=== PATIENT | male | born 1990 | race Caucasian/White ===

== ENCOUNTER 2021-06-22 23:00 | Emergency (ER) | payer OTHER ==
[~2021-06-22] VITALS: Ht 180.3 cm; Wt 85.5 kg
[2021-06-22 23:45] VITALS: BP 159/92
--- NOTE | 2021-06-22 23:53 | PHYS DOC ---
Past History Past Surgical History: No Surgical History Alcohol Use: None General Adult EDM: Chief Complaint: UPPER EXTREMITY INJURY HPI: HPI: " I was playing basket ball.. and got tripped up .. Fell .. and tried to catch myself .. and mess up my forearm and wrist.. that was about 1500 hrs.. and it has not gotten better. 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 Patient presents with above hx and complaint of FOOSH injury to Lt. forearm. Pt. Rt. hand dominate. Patient has obvious swelling of left hand and wrist. Distal sensation is equal to right hand. P atient reports pain with flexion, extension, pronation and supination of left wrist. Does have pain on loading the left thumb. Patient denies other injury and fall. Is up-to-date with vaccinations. No recent travel. No specific ill contacts. No history immunosuppression. Review of Systems: Review of Systems: Constitutional: Denies fever or chills Eyes: Denies change in visual acuity HENT: Denies nasal congestion or sore throat Respiratory: Denies cough or shortness of breath Cardiovascular: Denies chest pain or edema GI: Denies abdominal pain, nausea, vomiting, bloody stools or diarrhea : Denies dysuria Musculoskeletal: Complains of left wrist and hand injury. Integument: Denies rash Neurologic: Denies headache, focal weakness or sensory changes Endocrine: Denies polyuria or polydipsia Lymphatic: Denies swollen glands Psychiatric: Denies depression or anxiety Family History: Family History: Noncontributory to presentation Current Medications: Current Meds: See nursing for home meds Allergies: Allergies: Allergies Coded Allergies Type Severity Reaction Last Updated Verified No Known Drug Allergies 06/22/21 No Physical Exam: PE: Constitutional: Well developed, well nourished, mild acute distress, non-toxic appearance. [] HENT: Normocephalic, atraumatic, bilateral external ears normal, oropharynx moist, no oral exudates, nose normal. [] Eyes: PERRLA, EOMI, conjunctiva normal, no discharge. [] Neck: Normal range of motion, no tenderness, supple, no stridor. [] Cardiovascular:Heart rate regular rhythm, no murmur [] Lungs & Thorax: Bilateral breath sounds clear to auscultation [] Abdomen: Bowel sounds normal, soft, no tenderness, no masses, no pulsatile masses. [] Skin: Warm, dry, no erythema, no rash. [] Back: No tenderness, no CVA tenderness. [] Extremities: No tenderness, no cyanosis, no clubbing, ROM intact, no edema. Except the findings and left hand and wrist as per HPI Neurologic: Alert and oriented X 3, normal motor function, normal sensory function, no focal deficits noted. [] Psychologic: Affect anxious, judgement normal, mood normal. [] Current Patient Data: Vital Signs: Vital Signs Date Time Temp Pulse Resp B/P (MAP) Pulse Ox O2 Delivery O2 Flow Rate FiO2 06/22/21 23:45 98.4 60 20 159/92 (114) 97 Room Air EKG: EKG: [] Radiology/Procedures: Radiology/Procedures: [][address] [address] IMAGING REPORT Signed PATIENT: ROYCE CARMONA ACCOUNT: [id number] : 1990 LOCATION: ER AGE: 31 SEX: M EXAM STATUS: REG ER ORD. PHYSICIAN: KAITLYN LEMOS MD REASON: FELL ON ARM PLAYING BASKETBALL PROCEDURE: WRIST 3V LEFT Study: 1. XR LT WRIST 3VIEWS 2. XR FOREARM_LEFT 2 VIEWS Indication: Fall. Injury. Comparison: None. Findings: Left wrist: Subtle acute fracture at the dorsal lip of the radius with articular surface involvement. This is best seen on the lateral view and the small fragment appears to be slightly displaced proximally. The surrounding soft tissues are edematous. Intact distal ulna and carpal bones. Normal scapholunate interval. Left forearm: Intact radius and ulna shafts. No fracture or malalignment at the elbow. Impression: Left wrist and left forearm: Subtle fracture at the dorsal lip of the radius with articular surface involvement and possibly a few millimeters of proximal retraction of the fragment. No acute fracture seen elsewhere or traumatic malalignment. Electronically signed by: HIRAM SILVER MD (06/23/2021 12:57 AM) [facility] DICTATED AND SIGNED BY: HIRAM SILVER MD DATE: 06/23/2149 CC: KAITLYN LEMOS MD; PCP,NO ~ Heart Score: C/O Chest Pain: N/A Risk Factors: Risk Factors: DM, Current or recent (<one month) smoker, HTN, HLP, family history of CAD, obesity. Risk Scores: Score 0 - 3: 2.5% MACE over next 6 weeks - Discharge Home Score 4 - 6: 20.3% MACE over next 6 weeks - Admit for Clinical Observation Score 7 - 10: 72.7% MACE over next 6 weeks - Early Invasive Strategies Course & Med Decision Making: Course & Med Decision Making Pertinent Labs and Imaging studies reviewed. (See chart for details) Patient wear splint. Sling. Elevate wrist above his heart. Ice packs as needed. Tylenol and ibuprofen for pain. Consider repeat x-ray in 2 weeks. Follow-up [facility] or orthopedic if consult is needed. Impression: 1. FOOSH mechanism of injury 2. Wrist sprain 3. Very small chip, subtle fracture of dorsal lip of radius. [] [place] Disclaimer: [place] Disclaimer: This electronic medical record was generated, in whole or in part, using a voice recognition dictation system. Departure Departure: Referrals: PCP,NO (PCP) Discharge Summary Visit Information Final Diagnosis Problems Medical Problems: (1) Radial fracture Status: Acute Brief Hospital Course Allergies Allergies Coded Allergies Type Severity Reaction Last Updated Verified No Known Drug Allergies 06/22/21 No Vital Signs Vital Signs Date Time Temp Pulse Resp B/P (MAP) Pulse Ox O2 Delivery O2 Flow Rate FiO2 06/23/21 00:46 18 06/22/21 23:45 98.4 60 159/92 (114) 97 Room Air Brief Hospital Course Mr. Carmona is a 31 old [sex] who presented with [ ] Discharge Information Dischare Medications Current Medications Morphine Sulfate (Morphine 10mg Syringe) 10 mg 1X ONCE SQ Last administered on 06/23/21at 00:46; Start 06/23/21 at 00:30; Stop 06/23/21 at 00:31; Status DC Ketorolac Tromethamine (Toradol Im) 60 mg 1X ONCE IM Last administered on 06/23/21at 00:45; Start 06/23/21 at 00:30; Stop 06/23/21 at 00:31; Status DC Dragon Disclaimer This chart was dictated in whole or in part using Voice Recognition software in a busy, high-work load, and often noisy Emergency Department environment. It may contain unintended and wholly unrecognized errors or omissions. Dragon Disclaimer This chart was dictated in whole or in part using Voice Recognition software in a busy, high-work load, and often noisy Emergency Department environment. It may contain unintended and wholly unrecognized errors or omissions. KAITLYN LEMOS MD Jun 22, 2021 23:53
[2021-06-23] MEDS ORDERED: KETOROLAC 60 MG/2 ML VIAL. IM ONE (00:30)
[2021-06-23] MEDS ORDERED: MORPHINE SULFATE 10 MG/ML SYRINGE. SQ ONE (00:30)
--- NOTE | 2021-06-23 00:59 | RAD ---
Study: 1. XR LT WRIST 3VIEWS 2. XR FOREARM_LEFT 2 VIEWS Indication: Fall. Injury. Comparison: None. Findings: Left wrist: Subtle acute fracture at the dorsal lip of the radius with articular surface involvement. This is bes t seen on the lateral view and the small fragment appears to be slightly displaced proximally. The aggarwal rrounding soft tissues are edematous. Intact distal ulna and carpal bones. Normal scapholunate interv al. Left forearm: Intact radius and ulna shafts. No fracture or malalignment at the elbow. Impression: Left wrist and left forearm: Subtle fracture at the dorsal lip of the radius with articular surface involvement and possibly a few millimeters of proximal retraction of the fragment. No acute fracture seen elsewhere or traumatic ma lalignment. Electronically signed by: HIRAM SILVER MD (06/23/2021 12:57 AM) [facility]
== END 2021-06-23 02:29 ==
LOC: ER 23:00 → EEVIPCON 23:00 → ER 06-23 02:29
DX: S52.502A Unspecified fracture of the lower end of left radius, initial encounter for closed fracture (principal); S63.502A Unspecified sprain of left wrist, initial encounter; W01.0XXA Fall on same level from slipping, tripping and stumbling without subsequent striking against object, initial encounter; Y93.89 Activity, other specified; Y92.89 Other specified places as the place of occurrence of the external cause; Y99.8 Other external cause status
CPT/HCPCS: 29125; 73090; 73110; 96372; 99284; J1885; J2270